=== PATIENT | female | born 1940 | race Caucasian/White ===

== ENCOUNTER 2021-11-08 11:30 | Emergency (ER) | payer OTHER ==
[2021-11-08 11:39] VITALS: TEMP 98.2; BMI 23.0
[2021-11-08] MEDS ORDERED: MAG HYDROX/AL HYDROX/SIMETH 30 ML UNIT-DOSE CUP PO ONE (12:18)
[2021-11-08] MEDS ORDERED: ONDANSETRON 4 MG/2 ML VIAL IVPUSH ONE (12:18)
[2021-11-08] MEDS ORDERED: FAMOTIDINE 20 MG/50 ML IVPB 20 MG/50 ML MG IVPB ONE ×2 (12:30→12:31)
[2021-11-08] MEDS ORDERED: ONDANSETRON 4 MG/2 ML VIAL ONE (12:31)
[2021-11-08] MEDS ORDERED: MAG HYDROX/AL HYDROX/SIMETH 30 ML UNIT-DOSE CUP ONE (12:31)
[2021-11-08 15:17] LABS: BASO % 0.8 % (0-2.0); EOS % 2.5 % (0-4.5); HEMATOCRIT 38.8 % (32.4-45.2); HEMOGLOBIN 13.1 GM/dL (10.7-15.3); MCHC 33.8 g/dl (32.0-36.0); MEAN CELL VOLUME 97.8 fl (80-96); MEAN PLT VOLUME 9.1 fl (7.5-11.1); MONO % 7.9 % (3.8-10.2); NEUT % 71.8 % (42.8-82.8); PLATELET COUNT 203 10^3/uL (134-434); RBC 3.96 M/mm3 (3.60-5.2); RDW 14.6 % (11.6-15.6); WHITE BLOOD COUNT 6.1 K/mm3 (4.0-10.0)
[2021-11-08 15:44] LABS: ACTIVATED PTT 26.6 SECONDS (25.2-36.5); INR 0.98 (0.83-1.09); PROTHROMBIN TIME (PATIENT) 11.3 SEC (9.7-13.0)
[2021-11-08 15:54] LABS: CHLORIDE 102 mmol/L (98-107); SODIUM 138 mmol/L (136-145)
[2021-11-08 15:55] LABS: CALCIUM 9.9 mg/dL (8.5-10.1)
[2021-11-08 15:56] LABS: ALBUMIN 3.9 g/dl (3.4-5.0); ANION GAP 7 MMOL/L (8-16); BLOOD UREA NITROGEN 20.4 mg/dL (7-18); CO2 29 mmol/L (21-32); GLUCOSE,RANDOM 111 mg/dL (74-106); LIPASE 198 U/L (73-393)
[2021-11-08 15:59] LABS: SGOT/AST 15 U/L (15-37); SGPT/ALT 23 U/L (13-61)
[2021-11-08 16:00] LABS: BILIRUBIN,TOTAL 0.3 mg/dL (0.2-1); CREATININE 1.1 mg/dL (0.55-1.3); TOT PROT 7.7 g/dl (6.4-8.2)
[2021-11-08 16:02] LABS: ALK PHOS 58 U/L (45-117)
[2021-11-08 19:02] VITALS: BP 148/64; PULSE 71
== END 2021-11-08 19:03 | disposition home or self-care (01) ==
LOC: JER 11:30
PROC: 3E033NZ Introduction of Analgesics, Hypnotics, Sedatives into Peripheral Vein, Percutaneous Approach (ICD-10-PCS; principal; 2021-11-08)
PROC: 3E033GC Introduction of Other Therapeutic Substance into Peripheral Vein, Percutaneous Approach (ICD-10-PCS; 2021-11-08)
DX: R07.9 Chest pain, unspecified (principal); R14.2 Eructation; K21.9 Gastro-esophageal reflux disease without esophagitis
CPT/HCPCS: 36415; 71045-TC-FY; 80053; 82550; 83690; 84484; 85025; 85610; 85730; 93005; 93010; 99284-25; C9803; U0003; U0005

== ENCOUNTER 2022-12-12 11:12 | Emergency (ER) | payer OTHER ==
[2022-12-12 11:23] VITALS: BP 167/73; PULSE 74; RESP 16; TEMP 98.2; BMI 23.0
[2022-12-12] MEDS ORDERED: ACETAMINOPHEN 325 MG TABLET (FP) PO ONE (12:08)
[2022-12-12] MEDS ORDERED: ACETAMINOPHEN 325 MG TABLET (FP) ONE (12:14)
== END 2022-12-12 13:56 | disposition home or self-care (01) ==
LOC: JERFT 11:12 → JER 11:12 → JERFT 13:56
DX: R51.9 Headache, unspecified (principal); W10.8XXA Fall (on) (from) other stairs and steps, initial encounter
CPT/HCPCS: 70486-TC; 93971-TC; 99285-25